=== PATIENT | male | born 1960 | race African-American/Black ===

== ENCOUNTER 2019-12-17 20:02 | Observation (INO) | payer OTHER, SELFPAY ==
--- NOTE | ~2019-12-17 | XR_ITS ---
EXAMINATION: XR chest 2V DATE: 12/18/2019 16:48 INDICATION: Chest pain. TECHNIQUE: Frontal and lateral views of the chest were obtained. COMPARISON: Chest 2 views 12/17/2019, CT abdomen and pelvis 11/01/2016 FINDINGS: The chest demonstrates clear lungs without pneumonia, pleural effusion, or pneumothorax. Th e heart size is normal. Median sternotomy wires are noted. Calcified mediastinal lymph nodes are cons istent with old granulomatous disease. IMPRESSION: 1. No acute cardiopulmonary disease. Reviewed, dictated and finalized at location A.
--- NOTE | ~2019-12-17 | XR_ITS ---
XR chest 1V portable DATE: 12/17/2019 21:20 INDICATION: Midsternal chest pain. Open heart surgery 5 months ago. Weakness. TECHNIQUE: Portable AP chest on 12/17/2019 at 2118 hours COMPARISON: None FINDINGS: Status post sternotomy and probable CABG. Coronary artery calcification and/or stent. Heart size appears borderline, not optimally evaluated on AP projection because of magnification. Increased density overlies the left lower lung zone, suggesting possible left lower lobe infiltrate a nd/atelectasis. The lungs otherwise appear clear. No pleural effusion or pulmonary vascular congestion or pneumothorax. IMPRESSION: Possible left lower lobe infiltrate and/atelectasis; consider PA and lateral chest regres sed for more optimal evaluation Reviewed, dictated and finalized at location A. IMPRESSION: Possible left lower lobe infiltrate and/atelectasis; consider PA an d lateral chest regressed for more optimal evaluation
[2019-12-17 20:11] VITALS: BP 142/94; PULSE 87; RESP 20; TEMP 36.9; O2SAT 97
--- NOTE | 2019-12-17 20:32 | ECG_ITS ---
Measurements Intervals Todd Rate: 86 P: 65 NJ: 159 QRS: -36 QRSD: 89 T: 109 QT: 390 QTc: 469 Interpretive Statements SINUS RHYTHM LEFT ATRIAL ENLARGEMENT LEFT AXIS DEVIATION CANNOT RULE OUT SEPTAL INFARCT, AGE INDETERMINATE MINIMAL ST ELEVATION IN ANT/INF LEADS ST-T WAVE ABNORMALITY IN HIGH LATERAL LEADS- CONSIDER ISCHEMIA BASELINE WANDER- I, II, V1-V2 ABNORMAL ECG Electronically Signed On 12-18-2019 6:53:35 CDT by Mega Larsen D.O.
--- NOTE | 2019-12-17 20:48 | ED.SOB ---
HPI - SOB/Dyspnea General Chief Complaint: Shortness of Breath/Dyspnea Stated Complaint: short of breath Time Seen by Provider: 12/17/19 20:13 Source: patient Mode of arrival: ambulatory Limitations: no limitations History of Present Illness HPI Narrative: This patient is a 59 year old male with multiple medical problems who presents for evaluation of shortness of breath that started yesterday. He noticed his sob with walking up the stairs but he states he has continue to be sob with exertion. He denies cough, chills, fever, edema, or sore throat. He reports midsternal chest pain that has been present since his CABG 5 months ago, and he states it is unchanged. HE denies history of asthma or COPD , but he states he wants to get checked because his mother has COPD. Related Data Home Medications Medication Instructions Recorded Confirmed alendronate-vitamin D3 1 tablet PO DAILY 12/17/19 12/18/19 aspirin 81 mg PO DAILY 12/17/19 12/18/19 cetirizine [24Hour Allergy] 10 mg PO PRN 12/17/19 12/18/19 ezetimibe 10 mg PO DAILY 12/17/19 12/18/19 furosemide 40 mg PO BID 12/17/19 12/18/19 gabapentin 600 mg PO TID 12/17/19 12/18/19 levetiracetam 1,000 mg PO BID 12/17/19 12/18/19 metoprolol succinate 25 mg PO DAILY 12/17/19 12/18/19 montelukast 10 mg PO HS 12/17/19 12/18/19 ascorbic acid (vitamin C) [Vitamin 1,000 mg PO DAILY 12/18/19 12/18/19 C] carvedilol 25 mg PO BID 12/18/19 12/18/19 cholecalciferol (vitamin D3) 125 mcg PO DAILY 12/18/19 12/18/19 [Vitamin D3] cinnamon bark [Cinnamon] 2,000 mg PO DAILY 12/18/19 12/18/19 cyanocobalamin (vitamin B-12) 5,000 mcg SUBLINGUAL DAILY 12/18/19 12/18/19 [Vitamin B-12] nitroglycerin 0.4 mg SUBLINGUAL Q5-15M PRN 12/18/19 12/18/19 potassium chloride 20 meq PO DAILY 12/18/19 12/18/19 saw palmetto fruit 450 mg PO DAILY 12/18/19 12/18/19 Allergies Allergy/AdvReac Type Severity Reaction Status Date / Time No Known Allergies Allergy Unverified 01/06/18 18:52 Review of Systems Review of Systems: All systems reviewed & are unremarkable except as noted in HPI and below Constitutional: Constitutional: Denies chills and Denies fever(s) ENT: Reports nasal congestion and Denies sore throat Cardiovascular: Cardiovascular: Reports chest pain (chronic from sternotomy and sternum fracture) Respiratory: Respiratory: Denies cough, Reports dyspnea and Reports wheezing Gastrointestinal: Gastrointestinal: Denies abdominal pain, Denies diarrhea, Denies nausea and Denies vomiting [facility] Past Medical History Medical History (Updated 12/18/19 @ 04:58 by Melvi Arias MD) Coronary artery disease CVA (cerebral vascular accident) with left upper extremity hemiparesis since 2000 Diabetes mellitus Diabetic neuropathy Essential hypertension Hyperlipidemia Surgical History Surgical History (Updated 12/18/19 @ 04:51 by Pina Wooten DO) Hx of heart artery stent 2017 and 2018 S/P CABG (coronary artery bypass graft) Family History Family History (Updated 12/18/19 @ 04:52 by Pina Wooten DO) Mother Hypertension Chronic obstructive pulmonary disease Congestive heart failure Father , at age 69 of suspected CVA Diabetes mellitus Hypertension Social History Social History (Updated 12/18/19 @ 04:53 by Pina Wooten DO) Social History: The patient lives alone. He is on disability from complications of his diabetes and chronic back pain as well as neuropathy. Smoking status: Never smoker Alcohol intake: never Substance use: never Spiritual care concerns: No Exam Const: General: no acute distress and alert Orientation/consciousness: patient oriented x3 HENMT: Head: normocephalic and atraumatic Face and sinus: face symmetric Mouth: Yes oropharynx normal Eyes: EOM: EOMs intact bilaterally Chest: Chest palpation & inspection: normal inspection of the chest and tenderness sternum Other: healed sternotomy scar incision Resp:
[2019-12-17 20:55] LABS: Alveolar/Arterial O2 Gradient 37.4 mmHg; Base Excess ABG -1.8 mEq/l (+/-2.0); Device ROOM AIR; Fractional Inspired Oxygen 21 %; HCO3 ABG 22.3 mEq/l (22.0-26.0); Modified Allen's Test Pass; Oxygen Content ABG 20.5 %vol (16.0-22.0); Oxygen Saturation ABG 94.1 % (95.0-100.0); PCO2 ABG 36.1 mmHg (35.0-45.0); PO2 ABG 69.1 mmHg (80.0-100.0); PO2 FiO2 Ratio Arterial Blood 3.29 %; Site Drawn LEFT RADIAL; Total Hemoglobin 15.7 g/dL (12.0-18.0); pH ABG 7.408 (7.350-7.450)
[2019-12-17 21:07] LABS: Basophils Absolute Auto 0.1 K/mm3 (0.0-0.1); Basophils Percent Auto 0.7 % (0.2-1.2); Eosinophils Absolute Auto 0.2 K/mm3 (0-0.3); Eosinophils Percent Auto 1.7 % (0-4.4); Hemoglobin 15.7 g/dL (14.0-18.0); Immature Granulocyte Absolute 0.06 K/mm3 (0.00-0.031); Immature Granulocyte Percent A 0.6 % (0-0.5); Lymphocytes Absolute Auto 3.51 K/mm3 (0.9-3.2); Lymphocytes Percent Auto 36.1 % (18.3-44.2); Mean Corpuscular HGB Conc 33.4 g/dl (32-36); Mean Corpuscular Hemoglobin 27.9 pg (26-34); Mean Corpuscular Volume 83.6 fl (80-100); Mean Platelet Volume 11.5 fl (7.4-10.4); Monocytes Absolute Auto 1.1 K/mm3 (0.1-0.6); Monocytes Percent Auto 11.7 % (2.6-8.5); Neutrophils Absolute Auto 4.8 K/mm3 (1.3-6.7); Neutrophils Percent Auto 49.2 % (45.5-73.1); Platelet Count Result 235 k/mm3 (150-375); Red Blood Count 5.62 M/mm3 (4.6-6.20); Red Cell Distribution Width 12.8 % (11.5-14.5); White Blood Count 9.7 K/mm3 (4.5-10.0)
[2019-12-17 21:18] LABS: Alanine Aminotransferase 22 U/L (4-50); Alkaline Phosphatase 88 U/L (38-126); Anion Gap 7 mmol/L (8-16); Aspartate Amino Transferase 28 U/L (17-59); Bilirubin,Total 0.6 mg/dL (0.2-1.3); Blood Urea Nitrogen 30 mg/dL (9-20); Calcium 9.1 mg/dL (8.4-10.2); Carbon Dioxide 27 mmol/L (22-30); Chloride 98 mmol/L (98-107); Estimated Glomerular Filt Rate > 60; Glucose 306 mg/dL (75-110); Potassium 4.6 mmol/L (3.4-5.0); Sodium 132 mmol/L (137-145)
[2019-12-17 21:27] LABS: Prothrombin Time 12.4 Seconds (11.1-14.7)
[2019-12-17 21:30] LABS: D Dimer 0.37 ug/mL (<0.48)
[2019-12-17 21:35] LABS: NT Pro B Type Natriuretic Pept 1130 PG/ML (5-100); Troponin I 0.348 ng/mL (0.000-0.034)
[2019-12-17 21:43] VITALS: BP 136/84; PULSE 80; RESP 20; O2SAT 95
[2019-12-17 21:54] LABS: Lactate Dehydrogenase 729 U/L (313-618)
[2019-12-17 23:16] VITALS: BP 124/79; PULSE 78; RESP 20; O2SAT 100
[2019-12-17 23:36] LABS: Glucose Point of Care 244 (65-105)
[2019-12-17] MEDS: ASPIRIN 81 MG CHEWABLE TABLET 324 MG PO (23:52)
[2019-12-18] VITALS (19 sets, daily range): BP systolic 118–147; BP diastolic 76–99; PULSE 65–83; RESP 14–20; TEMP 35.5–36.4; O2SAT 95–100; BMI 35.0
--- NOTE | 2019-12-18 00:12 | PC.NURSE ---
0007 Report received from [facility].
--- NOTE | 2019-12-18 01:46 | ADMIMU ---
This patient, Gonzalo Headley, was admitted to IMU status, and placed in Intensive Care Unit-5. Patient/family oriented to hospital policies and general routines including ID bracelet, bed and alarms, visiting hours, pain management, procedures, bathroom and other care routines, personal items, smoking policy, room service/diet, and visiting hours. Valuables list has been completed. Information on how to activate the Rapid Response Team has been discussed. Patient/Family are encouraged to report perceived risks to care and to ask questions if they do not understand what they are told or what they should do.
[2019-12-18 03:39] LABS: Basophils Absolute Auto 0.1 K/mm3 (0.0-0.1); Basophils Percent Auto 0.6 % (0.2-1.2); Eosinophils Absolute Auto 0.2 K/mm3 (0-0.3); Eosinophils Percent Auto 1.9 % (0-4.4); Hematocrit 45.1 % (42.0-52.0); Hemoglobin 15.1 g/dL (14.0-18.0); Immature Granulocyte Absolute 0.03 K/mm3 (0.00-0.031); Immature Granulocyte Percent A 0.3 % (0-0.5); Lymphocytes Percent Auto 42.8 % (18.3-44.2); Mean Corpuscular HGB Conc 33.5 g/dl (32-36); Mean Corpuscular Hemoglobin 27.7 pg (26-34); Mean Corpuscular Volume 82.6 fl (80-100); Mean Platelet Volume 11.4 fl (7.4-10.4); Monocytes Percent Auto 11.9 % (2.6-8.5); Neutrophils Absolute Auto 3.7 K/mm3 (1.3-6.7); Neutrophils Percent Auto 42.5 % (45.5-73.1); Platelet Count Result 231 k/mm3 (150-375); Red Blood Count 5.46 M/mm3 (4.6-6.20); Red Cell Distribution Width 12.7 % (11.5-14.5); White Blood Count 8.6 K/mm3 (4.5-10.0)
[2019-12-18 04:18] LABS: Troponin I 0.393 ng/mL (0.000-0.034)
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
[2019-12-18] MEDS: CHOLECALCIFEROL 1,000 UNITS TABLET 5000 UNITS PO (07:48)
[2019-12-18] MEDS: INSULIN GLARGINE (*BKC) 100 UNITS/ML 60 UNITS SUB-Q (07:48)
[2019-12-18] MEDS: GABAPENTIN 300 MG CAPSULE 600 MG PO ×3 (07:49→17:30)
[2019-12-18] MEDS: ASPIRIN 81 MG ENTERIC TABLET PO (07:49)
[2019-12-18] MEDS: CYANOCOBALAMIN 1,000 MCG TABLET 5000 MCG BY MOUTH (07:49)
[2019-12-18] MEDS: levETIRAcetam 500 MG TABLET 1000 MG PO ×2 (07:49→17:29)
[2019-12-18] MEDS: carvediloL 25 MG TABLET PO (07:49)
[2019-12-18] MEDS: POTASSIUM CHLORIDE 20 MEQ TABLET.ER PO (07:50)
[2019-12-18] MEDS: FUROSEMIDE 40 MG TABLET PO ×2 (07:50→17:30)
[2019-12-18] MEDS: METOPROLOL SUCCINATE EXT REL 25 MG TABCR PO (07:50)
[2019-12-18] MEDS: EZETIMIBE 10 MG TABLET PO (07:51)
[2019-12-18 08:20] LABS: Glucose Point of Care 165 (65-105)
[2019-12-18] MEDS: ENOXAPARIN 40 MG/0.4 ML SYRINGE SUB-Q (08:23)
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
[2019-12-18] MEDS: CLOPIDOGREL BISULFATE 75 MG TABLET PO (11:49)
[2019-12-18] MEDS: INSULIN ASPART (*BKC) 100 UNITS/ML SUB-Q (11:50)
[2019-12-18 11:55] LABS: Glucose Point of Care 281 (65-105)
[2019-12-18 13:52] LABS: SARS-CoV-2 RNA PCR Negative
--- NOTE | 2019-12-18 14:50 | PC.NURSE ---
Pt going to IMU. Report given to Johana MCNEILL. Patient arrived to 202 at 1445 via wheelchair. All belongings and medications sent with patient. Medications and chart given to sales secretary.
--- NOTE | 2019-12-18 15:06 | PC.NURSE ---
This patient, Gonzalo Headley, was received from [ ICU] on 12/18/19 at 14:43. Personal belongings list checked and signed. Patient/family oriented to unit policies and routines. Received patient on Room air by wheel chair. Patient vital signs stable. A&Ox4. With belongings
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
[2019-12-18 17:13] LABS: Glucose Point of Care 188 (65-105)
[2019-12-18] MEDS: MONTELUKAST SODIUM 10 MG TABLET PO (20:21)
[2019-12-18 20:39] LABS: Glucose Point of Care 264 (65-105)
[2019-12-19] VITALS (9 sets, daily range): BP systolic 134–146; BP diastolic 85–98; PULSE 64–85; RESP 16–20; TEMP 35.7–36.6; O2SAT 96–100
--- NOTE | 2019-12-19 | ECHO_ITS ---
Patient Info Name: Gonzalo Headley Age: 59 years : 1960 Gender: Male Ht: 67 in Wt: 223 lbs BSA: 2.23 m2 HR: 69 bpm BP: 134 / 85 mmHg Technical Quality: Fair Exam Date: 12/19/2019 6:57 AM Exam Location: [facility] Pulmonary Patient Status: Outpatient Admit Date: 12/17/2019 Staff Ordering Physician: Pedro Luis Hernández MD Ski Edge Painter: Diana Chiang RDCS Attending Provider: Rai Saab MD Referring Physician: Edgar ODEN; Exam Type: CA echo dop color flow w con Study Info Complete two-dimensional, color flow and Doppler transthoracic echocardiogram is performed with contrast to opacify the left ventricle and to improve the deliniation of the left ventricle endocardial borders. Contrast/Agitated Saline Contrast/Ag. Saline: Definity Amount: 3.00 ml Summary 1. Left ventricular systolic function is mildly reduced, estimated at \R\40%. 2. The mitral valve has thickened leaflets. 3. There is mild mitral valve regurgitation. 4. There is no aortic valve stenosis. 5. Left atrial chamber dimension is mildly enlarged. Left Ventricle Left ventricular chamber dimension is normal. Left ventricular systolic function is mildly reduced, estimated at \R\40%. There is mildly increased left ventricular wall thickness. Left ventricular septal wall motion is normal. The left ventricular diastolic function is grade I diastolic dysfunction. Right Ventricle Right ventricular chamber dimension is normal. Right ventricular systolic function is normal. Left Atria Left atrial chamber dimension is mildly enlarged. Right Atria Right atrial chamber dimension is normal. Aortic Valve The aortic valve is trileaflet. There is no aortic valve sclerosis. There is no aortic valve stenosis. There is no aortic valve regurgitation. Pulmonic Valve The pulmonic valve is normal. There is no pulmonic valve stenosis. There is no pulmonic regurgitation. Mitral Valve The mitral valve has thickened leaflets. There is no mitral valve stenosis. There is mild mitral valve regurgitation. Tricuspid Valve The tricuspid valve leaflets are normal. There is no significant tricuspid valve stenosis. There is no tricuspid valve regurgitation. pulmonary Pressure difficult to assess due to poor TR envelope. Pericardium/Pleural The pericardium appears normal. There is no pericardial effusion. Inferior Vena Cava Normal inferior vena cava with >50% collapse upon inspiration. Aorta The aortic root size at the sinus of Valsalva is normal. The prox ascending aorta size is normal. Left Ventricular Outflow Tract Name Value Normal LVOT 2D LVOT Diameter 2.29 cm LVOT Doppler LVOT Peak Gradient 2 mmHg LVOT Mean Gradient 1 mmHg LVOT VTI 13.04 cm LVOT VTI/AV VTI Ratio 0.71 LVOT Stroke Volume 53.84 ml LVOT CO 2.53 l/min LVOT CI 1.13 L/min/m2 Pulmonic Valv
[2019-12-19 04:45] LABS: Potassium 4.1 mmol/L (3.4-5.0)
[2019-12-19 04:48] LABS: Anion Gap 5 mmol/L (8-16); Blood Urea Nitrogen 29 mg/dL (9-20); Calcium 9.1 mg/dL (8.4-10.2); Carbon Dioxide 29 mmol/L (22-30); Chloride 101 mmol/L (98-107); Estimated CRCL calculation 68 ml/min; Estimated Glomerular Filt Rate > 60; Glucose 234 mg/dL (75-110); Magnesium 1.8 mg/dL (1.6-2.3); Sodium 135 mmol/L (137-145)
[2019-12-19 07:51] LABS: Hemoglobin A1C 10.2 % (<5.7)
[2019-12-19] MEDS: CANAGLIFLOZIN 100 MG TABLET PO (08:25)
[2019-12-19 08:36] LABS: Glucose Point of Care 212 (65-105)
[2019-12-19] MEDS: ASPIRIN 81 MG ENTERIC TABLET PO (08:54)
[2019-12-19] MEDS: POTASSIUM CHLORIDE 20 MEQ TABLET.ER PO (08:54)
[2019-12-19] MEDS: CYANOCOBALAMIN 1,000 MCG TABLET 5000 MCG BY MOUTH (08:54)
[2019-12-19] MEDS: CHOLECALCIFEROL 1,000 UNITS TABLET 5000 UNITS PO (08:54)
[2019-12-19] MEDS: levETIRAcetam 500 MG TABLET 1000 MG PO (08:55)
[2019-12-19] MEDS: ENOXAPARIN 40 MG/0.4 ML SYRINGE SUB-Q (08:55)
[2019-12-19] MEDS: GABAPENTIN 300 MG CAPSULE 600 MG PO ×2 (08:55→12:31)
[2019-12-19] MEDS: CLOPIDOGREL BISULFATE 75 MG TABLET PO (08:55)
[2019-12-19] MEDS: METOPROLOL SUCCINATE EXT REL 25 MG TABCR PO (08:55)
[2019-12-19] MEDS: EZETIMIBE 10 MG TABLET PO (08:55)
[2019-12-19] MEDS: FUROSEMIDE 40 MG TABLET PO (08:56)
[2019-12-19] MEDS: INSULIN GLARGINE (*BKC) 100 UNITS/ML 60 UNITS SUB-Q (08:56)
[2019-12-19] MEDS: INSULIN ASPART (*BKC) 100 UNITS/ML SUB-Q (08:56)
--- NOTE | 2019-12-19 12:55 | PM.PNCARD ---
Progress Note: A&P Assessment and Plan (1) Person under investigation for COVID-19: Code(s): Z20.828 - Contact with and (suspected) exposure to other viral communicable diseases Status: Acute Assessment and Plan: serology pending (2) Elevated troponin: Code(s): R79.89 - Other specified abnormal findings of blood chemistry Status: Acute Assessment and Plan: Pt COVID PUI with elevated troponin in setting of pneumonia and CRI Flat pattern No acute EKG changes he seems to be stable from cardiac standpoint to be discharged home, please have him follow-up with me in 1 week (3) Diabetes mellitus with hyperglycemia: Qualifiers: Diabetes mellitus type: type 2 Diabetes mellitus moth exterminator insulin use: with fdc use Qualified Code(s): E11.65 - Type 2 diabetes mellitus with hyperglycemia; Z79.4 - residential (current) use of insulin Code(s): E11.65 - Type 2 diabetes mellitus with hyperglycemia Status: Acute Assessment and Plan: glucose > 300 management per PC (4) Pneumonia: Code(s): J18.9 - Pneumonia, unspecified organism Status: Acute Assessment and Plan: management per permanent mold supervisor (5) Hypothermia: Code(s): T68.XXXA - Hypothermia, initial encounter Status: Acute (6) Monocytosis: Code(s): D72.821 - Monocytosis (symptomatic) Status: Acute (7) Oxygen desaturation: Code(s): R09.02 - Hypoxemia Status: Acute Subjective Date/time seen: 12/19/19 12:55 he feels okay today, no more chest pain, no significant shortness breath no leg swelling, he wants to go home Exam Const: General: No no acute distress Resp: Effort & Inspection: normal respiratory effort GI: Inspection: non-distended Skin: General skin exam: normal color Extrem: General: normal to inspection, no edema and pedal edema (trace LE edema) Objective Data Vital Signs Vital Signs: Vital Signs - 24 hr 12/18/19 13:52 12/18/19 16:00 12/18/19 18:00 Temperature 36.4 C Pulse Rate 76 77 79 Respiratory Rate 18 Blood Pressure 147/99 H Pulse Oximetry 100 12/18/19 19:59 12/18/19 20:00 12/18/19 21:39 Temperature 36.1 C L Pulse Rate 75 75 83 Respiratory Rate 16 16 Blood Pressure 134/84 Pulse Oximetry 100 100 12/19/19 00:00 12/19/19 02:00 12/19/19 04:00 Temperature 36.6 C 36.5 C Pulse Rate 71 74 77 Respiratory Rate 18 20 Blood Pressure 141/93 H 134/85 Pulse Oximetry 96 100 12/19/19 05:39 12/19/19 08:00 12/19/19 08:16 Temperature 36.4 C Pulse Rate 64 73 75 Respiratory Rate 16 Blood Pressure 144/98 H Pulse Oximetry 98 12/19/19 08:55 12/19/19 10:15 12/19/19 12:00 Temperature 35.7 C L Pulse Rate 75 76 84 Respiratory Rate 16 Blood Pressure 146/97 H Pulse Oximetry 100 Intake/Output Intake/Output: Intake & Output 12/16/19 12/17/19 12/18/19 12/19/19 23:59 23:59 23:59 23:59 Intake Total 2220 420 Output Total 800 480 Balance 1420 -60 Meds/Results Medications: Active Medications Generic Name Dose Route Start Last Admin Trade Name Freq PRN Reason Stop Dose Admin Hydrocodone Bitart/Acetaminophen 1 tab 12/18/19 08:01 12/19/19 04:12 [place] 10-325 Mg PO 1 tab Q6H PRN Administration Pain Rated 7-10 Aspirin 81 mg 12/18/19 09:00 12/19/19 08:54 Aspirin Ec PO 81 mg DAILY TRAN Administration Canagliflozin 100 mg 12/19/19 08:00 12/19/19 08:25 Invokana PO 100 mg DAILY@0800 TRAN Administration Clopidogrel Bisulfate 75 mg 12/18/19 09:00 12/19/19 08:55 Plavix PO 75 mg QAM TRAN Administration Cyanocobalamin 5,000 mcg 12/18/19 09:00 12/19/19 08:54 Vitamin B-12 Tab BY MOUTH 5,000 mcg DAILY TRAN Administration Dextrose 12.5 gm 12/18/19 06:19 Dextrose 50% Syringe IV PUSH PRN PRN Hypoglycemia Protocol Ezetimibe 10 mg 12/18/19 09:00 12/19/19 08:55 Zetia PO 10 mg DAILY TRAN Administrat
[2019-12-19 12:59] LABS: Glucose Point of Care 182 (65-105)
--- NOTE | 2019-12-19 13:07 | PM.DS ---
DS: Admitting Diagnosis Admitting Diagnosis Admitting Diagnosis: Dyspnea, Elevated troponin DS: Discharge Diagnosis Discharge Diagnosis (1) Person under investigation for COVID-19: Code(s): Z20.828 - Contact with and (suspected) exposure to other viral communicable diseases Status: Acute Assessment and Plan: COVID-19 testing was negative. CXR on admisison showing possible LLL airspace disease but CXR clear on repeat as a 2 view. (2) Chest pain: Qualifiers: Chest pain type: other chest pain Qualified Code(s): R07.89 - Other chest pain Code(s): R07.9 - Chest pain, unspecified Status: Acute Assessment and Plan: Patient with throbbing but fleeting chest pain as well as DANG. Patient no longer SOB. No further chest pain. BNP was 1130 but CXR not consistent with pulmonary edema and clinically appears euvolemic. We continued home Lasix. Echo pending. [employer] following. (3) Dyspnea on exertion: Code(s): R06.00 - Dyspnea, unspecified Status: Acute Assessment and Plan: As above. (4) Coronary artery disease: Code(s): I25.10 - Atherosclerotic heart disease of [place] coronary artery without angina pectoris Status: Acute Assessment and Plan: CAD s/p recent CABG. As above. (5) Elevated troponin: Code(s): R79.89 - Other specified abnormal findings of blood chemistry Status: Acute Assessment and Plan: Troponin elevated but flat at 0.39. Cardiology following. We continued home cardiac medications of aspirin, beta-erick and Lasix. He has listed both Coreg and metoprolol. RN has an updated med listed and patient takes Metoprolol ER 25mg daily so we stopped Coreg. (6) Diabetes mellitus with hyperglycemia: Qualifiers: Diabetes mellitus type: type 2 Diabetes mellitus truck terminal manager insulin use: with custodial use Qualified Code(s): E11.65 - Type 2 diabetes mellitus with hyperglycemia; Z79.4 - meterman (current) use of insulin Code(s): E11.65 - Type 2 diabetes mellitus with hyperglycemia Status: Acute Assessment and Plan: A1c 10.2. The patient's blood glucose was monitored Glucose elevated at times Monitored with AccuCheks covering with sliding scale. Hypoglycemia protocol was available as needed. We continued current medications with Lantus; Continued diabetic consistent carbohydrate diet. (7) Essential hypertension: Code(s): I10 - Essential (primary) hypertension Status: Acute Assessment and Plan: Patient's blood pressure was monitored Blood pressure remained reasonably well controlled. We continued current medications. DS: Summary Hospital Course Reason for hospitalization: 59yo male with hx of CAD here for CP. Please see H&P for details Hospital Course: As above Time Spent with Patient Time attestation: Total time spent providing and/or coordinating discharge services:35 minutes Time spent: Greater than 30 minutes Specific discharge activities: Discussed with Cardiology Exam Narrative: Exam Narrative: AF 146/97 85 16 100% ra Gen - NARD Chest - CTA bilaterally, nml RR. well healed vertical midline scar CV - RRR S1/S2. telemetry showing no significant dysrhythmias Abd - Soft, NT/ND, Positive BS Ext - No pedal edema Psych - Nml mood and affect; in good spirits. Skin - Warm and dry DS: Data Data Completed and Pending Labs on day of discharge: Labs from last 24 hours 12/19/19 12/19/19 12/19/19 12:33 08:18 04:02 Sodium Potassium Chloride Carbon Dioxide Anion Gap BUN Creatinine Estim Creat Clear Calc Estimated GFR Glucose POC Capillary Glucose 182 H 212 H Hemoglobin A1c 10.2 H Calcium Magnesium SARS-CoV-2 RNA (RT-PCR) 12/19/19 12/18/19 12/18/19 04:02 20:35 17:09 Sodium 135 L Potassium 4.1 Chloride 101 Carbon Dioxide 29 Anion Gap 5 L
--- NOTE | 2019-12-24 14:39 | PC.NURSE ---
ECHO report shown to Dr. Saab.
--- NOTE | 2019-12-29 09:31 | PC.NURSE ---
Echo results faxed to Dr. Juan Santoyo.
== END 2019-12-19 13:31 | disposition home or self-care (01) ==
LOC: ANHED 23:14 → ANHICU 23:25 → ANHIMU 12-18 14:43
PROVIDERS: Admitting Provider Internal Medicine; Emergency Provider General Practice; PCP Family Medicine; Visit Provider Internal Medicine
DX: Z20.828 Contact with and (suspected) exposure to other viral communicable diseases (principal); R07.9 Chest pain, unspecified; R06.00 Dyspnea, unspecified; R79.89 Other specified abnormal findings of blood chemistry; E11.65 Type 2 diabetes mellitus with hyperglycemia; D72.821 Monocytosis (symptomatic); T68.XXXA Hypothermia, initial encounter; R09.02 Hypoxemia; I25.10 Atherosclerotic heart disease of native coronary artery without angina pectoris; E11.40 Type 2 diabetes mellitus with diabetic neuropathy, unspecified; I10 Essential (primary) hypertension; I69.354 Hemiplegia and hemiparesis following cerebral infarction affecting left non-dominant side; E78.5 Hyperlipidemia, unspecified; Z95.5 Presence of coronary angioplasty implant and graft; Z95.1 Presence of aortocoronary bypass graft; Z79.82 Long term (current) use of aspirin
CPT/HCPCS: 36415; 36600; 71045; 71046; 80048; 80053; 82805; 83036; 83615; 83735; 83880; 84484; 85025; 85380; 85610; 85730; 87635; 93005; 96372; 99285; A9270; C8929; C9803; G0378; G0379; J1650; J1815; Q9957; U0003

== ENCOUNTER 2023-03-02 23:24 | Inpatient (IN) | payer OTHER, SELFPAY ==
--- NOTE | ~2023-03-02 | CT_ITS ---
EXAMINATION: CTA chest PE protocol DATE: 03/03/2023 02:52 INDICATION: Dyspnea. TECHNIQUE: Computed tomography angiography (CTA) of the chest was performed with 100 mL Omnipaque-350 intravenous contrast timed to evaluate the pulmonary arteries. Coronal maximum intensity projection 3D-reconstructions were created by the technologist. Automated exposure control and iterative reconst ruction technique were employed. The dose-length product was 638.28 mGy-cm. COMPARISON: CT abdomen and pelvis 11/01/16 FINDINGS: There is smooth septal thickening, consistent mild pulmonary edema. There are small pleural effusions. There is mild dependent atelectasis bilaterally. A calcified left lung nodule and calcifi ed left hilar and mediastinal lymph nodes are consistent with old granulomatous disease. There is mil d mediastinal lymphadenopathy, likely reactive. Cardiomegaly is noted. There are changes of coronary artery bypass grafting. No pericardial effusion. The central pulmonary arteries are enlarged, consist ent with pulmonary arterial hypertension. There is no pulmonary embolus. There is bilateral gynecomas tia. Calcifications in the liver and spleen are consistent with old granulomatous disease. There is s evere thoracic spondylosis. IMPRESSION: 1. No pulmonary embolus. Sensitivity is mildly decreased by motion artifact. 2. Mild pulmonary edema. 3. Small pleural effusions. 4. Mild mediastinal lymphadenopathy, likely reactive. Reviewed, dictated and finalized at location E. RETAILER
--- NOTE | ~2023-03-02 | XR_ITS ---
EXAMINATION: XR chest 2V DATE: 03/03/2023 01:37 INDICATION: Chest pain. TECHNIQUE: Frontal and lateral views of the chest were obtained. COMPARISON: Chest 2 views 01/17/2020, chest CT 03/03/2023 FINDINGS: There are small pleural effusions. There is mild atelectasis at the lung bases. There is a diffuse interstitial pattern, consistent with mild pulmonary edema. No pneumothorax. Cardiomegaly is noted. Median sternotomy wires and mediastinal surgical clips are seen, likely from prior coronary ar joanna bypass grafting. IMPRESSION: 1. Mild pulmonary edema. 2. Small pleural effusions. 3. Cardiomegaly. Reviewed, dictated and finalized at location E. CULTURE TEACHER
--- NOTE | 2023-03-02 23:26 | ECG_ITS ---
Measurements Intervals [place] Rate: 80 P: 51 LA: 165 QRS: -73 QRSD: 91 T: 105 QT: 383 QTc: 443 Interpretive Statements SINUS RHYTHM LEFT AXIS DEVIATION INCOMPLETE LEFT BUNDLE BRANCH BLOCK POOR R WAVE PROGRESSION, CONSIDER ANTERIOR INFARCT BORDERLINE ST-T WAVE ABNORMALITY0 DIFFUSE LEADS ABNORMAL ECG COMPARED TO ECG 12/17/2019 20:16:34 INCOMPLETE LEFT BUNDLE BRANCH BLOCK NOW PRESENT Electronically Signed On 03-03-2023 6:56:05 ASSOCIATE PROFESSOR OF LITERATURE by Mega Larsen D.O.
[2023-03-02 23:28] VITALS: BP 156/97; PULSE 81; RESP 20; TEMP 36.3; O2SAT 100
[2023-03-03] VITALS (18 sets, daily range): BP systolic 108–164; BP diastolic 62–102; PULSE 60–88; RESP 14–23; TEMP 36.5; O2SAT 94–100
--- NOTE | 2023-03-03 00:57 | ED.SOB ---
HPI - SOB/Dyspnea General Chief Complaint: Shortness of Breath/Dyspnea Stated Complaint: SOB Time Seen by Provider: 03/03/23 00:24 Source: patient Limitations: no limitations History of Present Illness HPI Narrative: Patient is a 63-year-old male presents to the emergency department complaining of shortness of breath. Patient states he has been having shortness of breath for the past 2 weeks has not gotten better, worse when he lays flat. Patient states he was just admitted to another facility and was discharged a couple days ago and told them that he was not worried go home as he still isn't feeling well but was sent home regardless and was still feeling short of breath. Patient admits to history of CABG and assisting a heart doctor through [facility]. Patient states that he takes Lasix twice a day and has any recent changes to his medications and has overall been taking this as prescribed. Patient denies history of blood clots or use of blood thinners. Patient is to bilateral lower extremity swelling has been present over similar duration is the shortness of breath and is also chronic and seems to go up and down but has not been getting better either. Patient admits to urinating without difficulty. Patient denies melena, hematochezia, abdominal pain, nausea, vomiting, sore throat, nasal congestion, new numbness, new weakness, recent injuries, fever. Patient admits to chronic chest pain that is unchanged. Patient denies use home oxygen. Patient states he lives at home with his mother who is his caregiver. Related Data Home Medications Medication Instructions Recorded Confirmed alendronate 70 mg-cholecalciferol 1 tablet PO DAILY 12/17/19 12/18/19 (vitamin D3) 5,600 unit tablet aspirin 81 mg tablet,delayed 81 mg PO DAILY 12/17/19 12/18/19 release cetirizine 10 mg tablet (24Hour 10 mg PO PRN 12/17/19 12/18/19 Allergy) ezetimibe 10 mg tablet 10 mg PO DAILY 12/17/19 12/18/19 furosemide 40 mg tablet 40 mg PO BID 12/17/19 12/18/19 gabapentin 300 mg capsule 600 mg PO TID 12/17/19 12/18/19 levetiracetam 1,000 mg tablet 1,000 mg PO BID 12/17/19 12/18/19 metoprolol succinate 25 mg 25 mg PO DAILY 12/17/19 12/18/19 tablet,extended release 24 hr montelukast 10 mg tablet 10 mg PO HS 12/17/19 12/18/19 ascorbic acid (vitamin C) 500 mg 1,000 mg PO DAILY 12/18/19 12/18/19 tablet (Vitamin C) cholecalciferol (vitamin D3) 125 125 mcg PO DAILY 12/18/19 12/18/19 mcg (5,000 unit) tablet (Vitamin D3) cinnamon bark 500 mg capsule 2,000 mg PO DAILY 12/18/19 12/18/19 (Cinnamon) cyanocobalamin (vitamin B-12) 5,000 mcg sublingual DAILY 12/18/19 12/18/19 5,000 mcg sublingual tablet (Vitamin B-12) hydrocodone 10 mg-acetaminophen 1 tablet PO TID PRN Pain 12/18/19 12/18/19 325 mg tablet nitroglycerin 0.4 mg sublingual 0.4 mg sublingual Q5-15M PRN Chest 12/18/19 12/18/19 tablet Pain potassium chloride 20 mEq 20 meq PO DAILY 12/18/19 12/18/19 tablet,extended release saw palmetto 450 mg capsule 450 mg PO DAILY 12/18/19 12/18/19 Allergies Allergy/AdvReac Type Severity Reaction Status Date / Time No Known Allergies Allergy Unverified 01/06/18 18:52 Review of Systems Review of Systems: A 10 system review of systems was completed on the patient and is negative except for what is stated in the HPI. Nursing and ancillary documentation was reviewed. [facility] Past Medical History Medical History (Updated 03/03/23 @ 06:21 by Armando Pelletier DO) Coronary artery disease CVA (cerebral vascular accident) with left upper extremity hemiparesis since 2000 Diabetes mellitus Diabetic neuropathy Essential hypertension Hyperlipidemia Seizure disorder since CVA last year Surgical History Surgical History (Updated 12/18/19 @ 04:51 by Pina Wooten DO) Hx of heart artery stent 2017 and 2018 S/P CABG (coronary artery bypass graft) Family History Family History (Reviewed 12/18/19 @ 08:30 by Judit Escobar,
[2023-03-03 01:26] LABS: Basophils Percent Auto 0.4 % (0.2-1.2); Eosinophils Absolute Auto 0.5 K/mm3 (0-0.3); Eosinophils Percent Auto 6.2 % (0-4.4); Hematocrit 43.7 % (42.0-52.0); Hemoglobin 13.5 g/dL (14.0-18.0); Immature Granulocyte Absolute 0.03 K/mm3 (0.00-0.031); Immature Granulocyte Percent A 0.4 % (0-0.5); Lymphocytes Absolute Auto 1.83 K/mm3 (0.9-3.2); Lymphocytes Percent Auto 23.2 % (18.3-44.2); Mean Corpuscular HGB Conc 30.9 g/dl (32-36); Mean Corpuscular Hemoglobin 27.4 pg (26-34); Mean Corpuscular Volume 88.8 fl (80-100); Mean Platelet Volume 11.7 fl (7.4-10.4); Monocytes Absolute Auto 1.2 K/mm3 (0.1-0.6); Monocytes Percent Auto 15.1 % (2.6-8.5); Neutrophils Absolute Auto 4.3 K/mm3 (1.3-6.7); Neutrophils Percent Auto 54.7 % (45.5-73.1); Nucleated Red Blood Cells Perc 0.3 % (0.0-0.2); Platelet Count Result 210 k/mm3 (150-375); Red Blood Count 4.92 M/mm3 (4.6-6.20); Red Cell Distribution Width 15.5 % (11.5-14.5); White Blood Count 7.9 K/mm3 (4.5-10.0)
[2023-03-03 01:32] LABS: Alanine Aminotransferase 36 U/L (6-50); Albumin Level 3.9 g/dL (3.5-5.1); Alkaline Phosphatase 97 U/L (38-126); Anion Gap 8 mmol/L (8-16); Aspartate Amino Transferase 35 U/L (17-59); Bilirubin,Total 1.3 mg/dL (0.2-1.3); Blood Urea Nitrogen 25 mg/dL (9-20); Calcium 8.7 mg/dL (8.4-10.2); Carbon Dioxide 29 mmol/L (22-30); Chloride 102 mmol/L (98-107); Estimated CRCL calculation 42 ml/min; Estimated Glomerular Filt Rate 53; Glucose 267 mg/dL (65-110); INR 1.1; Lipase 31 U/L (23-300); Magnesium 2.5 mg/dL (1.6-2.3); Potassium 4.5 mmol/L (3.4-5.0); Prothrombin Time 14.9 Seconds (11.1-14.7); Sodium 139 mmol/L (137-145)
[2023-03-03 01:33] LABS: Partial Thromboplastin Time 36.6 SECONDS (22.3-36.8)
[2023-03-03] MEDS: FUROSEMIDE INJ 40 MG/4 ML VIAL IV PUSH (01:41)
[2023-03-03 01:57] LABS: Influenza A QL RT-PCR Negative (Negative); Influenza B QL RT-PCR Negative (Negative); SARS-CoV-2 RNA PCR Negative (Negative)
[2023-03-03 02:02] LABS: NT Pro B Type Natriuretic Pept 14100 pg/mL (19.9-100)
[2023-03-03 04:45] LABS: Troponin I 0.061 ng/mL (0.000-0.034)
[2023-03-03 07:21] LABS: Troponin I 0.066 ng/mL (0.000-0.034)
[2023-03-03] MEDS: ISOSORBIDE MONONITRATE 30 MG TAB.ER.24H PO (11:58)
[2023-03-03] MEDS: CLOPIDOGREL BISULFATE 75 MG TABLET PO (11:59)
[2023-03-03] MEDS: SACUBITRIL/VALSARTAN 49-51 MG TABLET 1 TABLET PO ×2 (11:59→20:52)
[2023-03-03] MEDS: FUROSEMIDE 40 MG TABLET PO ×2 (11:59→17:49)
[2023-03-03] MEDS: METOPROLOL SUCCINATE EXT REL 25 MG TABCR PO (11:59)
--- NOTE | 2023-03-03 12:39 | PM.IMHP ---
H&P: HPI History of Present Illness Date/Time: 03/03/23 12:39 Chief Complaint: sob Narrative: 63-year-old female with history of heart disease, CVA, diabetes, hypertension, seizure disorder is presenting with shortness of breath. He states that has gotten progressively worse of the last couple weeks and is worse when he lays flat. He was just admitted to a different facility and discharged home even though he says he was not feeling well and was still short of breath. He does have a history of a CABG done at [facility] and takes Lasix twice a day. He denies missing any medications recently. He states his lower extremity edema is present in at baseline. No chest pain. No nausea, vomiting or diarrhea. No fevers or chills. Review of Systems Review of Systems: 12 point review of systems was assessed and was negative except as noted in the HPI [facility] Past Medical History Medical History Coronary artery disease CVA (cerebral vascular accident) with left upper extremity hemiparesis since 2000 Diabetes mellitus Diabetic neuropathy Essential hypertension Hyperlipidemia Seizure disorder since CVA last year Surgical History Surgical History Hx of heart artery stent 2017 and 2018 S/P CABG (coronary artery bypass graft) Family History Family History Mother Hypertension Chronic obstructive pulmonary disease Congestive heart failure Father , at age 69 of suspected CVA Diabetes mellitus Hypertension Social History Social History Social History: The patient lives alone. He is on disability from complications of his diabetes and chronic back pain as well as neuropathy. Smoking status: Never smoker Alcohol intake: never Substance use: never Substance use type: does not use Lack of Transportation: No Lack of Food: Never True Current Housing: I Have Housing Concerned About Future Housing: No Difficulty Paying Gas/Electric Bills: No Difficulty Paying for Meds: No Currently Unemployed: No Education: Associate Degree Difficulty w/ Childcare or Family Care: No Spiritual care concerns: No Meds Home Medications and Allergies Home Medications Medication Instructions Recorded Confirmed Type alendronate 70 mg-cholecalciferol 1 tablet PO DAILY 12/17/19 12/18/19 History (vitamin D3) 5,600 unit tablet aspirin 81 mg tablet,delayed 81 mg PO DAILY 12/17/19 12/18/19 History release cetirizine 10 mg tablet (24Hour 10 mg PO PRN 12/17/19 12/18/19 History Allergy) ezetimibe 10 mg tablet 10 mg PO DAILY 12/17/19 12/18/19 History gabapentin 300 mg capsule 600 mg PO TID 12/17/19 12/18/19 History levetiracetam 1,000 mg tablet 1,000 mg PO BID 12/17/19 12/18/19 History metoprolol succinate 25 mg 25 mg PO DAILY 12/17/19 12/18/19 History tablet,extended release 24 hr montelukast 10 mg tablet 10 mg PO HS 12/17/19 12/18/19 History ascorbic acid (vitamin C) 500 mg 1,000 mg PO DAILY 12/18/19 12/18/19 History tablet (Vitamin C) cholecalciferol (vitamin D3) 125 125 mcg PO DAILY 12/18/19 12/18/19 History mcg (5,000 unit) tablet (Vitamin D3) cinnamon bark 500 mg capsule 2,000 mg PO DAILY 12/18/19 12/18/19 History (Cinnamon) cyanocobalamin (vitamin B-12) 5,000 mcg sublingual DAILY 12/18/19 12/18/19 History 5,000 mcg sublingual tablet (Vitamin B-12) nitroglycerin 0.4 mg sublingual 0.4 mg sublingual Q5-15M PRN Chest 12/18/19 12/18/19 History tablet Pain potassium chloride 20 mEq 20 meq PO DAILY 12/18/19 12/18/19 History tablet,extended release saw palmetto 450 mg capsule 450 mg PO DAILY 12/18/19 12/18/19 History clopidogrel 75 mg tablet 75 mg PO QAM #30 tabs 12/19/19 Rx insulin glargine 100 unit/mL 70 unit (0.7 mL) subcut DAILY #10
--- NOTE | 2023-03-03 14:58 | PC.NURSE ---
This patient, Gonzalo Headley, was admitted to Medical Room 347-01. Patient/family oriented to hospital policies and general routines including ID bracelet, bed and alarms, visiting hours, pain management, procedures, bathroom and other care routines, personal items, smoking policy, room service/diet, and visiting hours. Information on how to activate the Rapid Response Team has been discussed. Patient/Family are encouraged to report perceived risks to care and to ask questions if they do not understand what they are told or what they should do.
--- NOTE | 2023-03-03 16:07 | PC.NURSE ---
Addendum entered by Alejandro Eason RN 03/03/23 16:17: RN did not update medication list as ER nurse and hospitalist already confirmed medications. Original Note: Patient does not have a medication list or know what he takes. Patient also stated that his mother does not know what medications he takes. RN is using external medication history to update medication list.
[2023-03-03] MEDS: INSULIN ASPART (*BKC) 100 UNITS/ML SUB-Q (17:49)
[2023-03-03 18:43] LABS: Glucose Point of Care 220 mg/dl (65-105)
[2023-03-03 21:11] LABS: Hemoglobin A1C 10.6 % (<5.7)
[2023-03-03] MEDS: traZODone HCL 50 MG TABLET 100 MG PO (21:39)
[2023-03-03] MEDS: GABAPENTIN 300 MG CAPSULE 600 MG PO (21:39)
[2023-03-04] VITALS (11 sets, daily range): BP systolic 123–155; BP diastolic 71–89; PULSE 63–85; RESP 18–21; TEMP 36.6–37.4; O2SAT 93–100
--- NOTE | 2023-03-04 | ECHO_ITS ---
Patient Info Name: Gonzalo Headley Age: 63 years : 1960 Gender: Male Ht: 68 in Wt: 190 lbs BSA: 2.05 m2 HR: 68 bpm BP: 164 / 97 mmHg Heart Rhythm: Sinus Rhythm Technical Quality: Fair Exam Date: 03/04/2023 9:43 AM Exam Location: Echo Lab Exam Room: 348 Patient Status: Inpatient Admit Date: 03/04/2023 Staff Ordering Physician: Roz Acosta DO Site Promotion Agent: Evie Olivares RDCS Attending Provider: Lluvia Das MD Referring Physician: Karla ERNANDEZ; Exam Type: CA echo doppler color flow Study Info Indications - short of breath Complete two-dimensional, color flow and Doppler transthoracic echocardiogram is performed. Summary 1. Complete two-dimensional, color flow and Doppler transthoracic echocardiogram is performed. 2. Normal left ventricular size, overall preserved systolic function, inferior hypokinesia noted. 3. Mild left atrial enlarged. 4. Trivial mitral regurgitation. Left Ventricle Left ventricular chamber dimension is normal. Left ventricular systolic function is normal, estimated at Empty. The left ventricular diastolic function is grade I diastolic dysfunction. Right Ventricle Right ventricular chamber dimension is normal. Left Atria Left atrial chamber dimension is mildly enlarged. Right Atria Right atrial chamber dimension is normal. Aortic Valve The aortic valve is normal. Pulmonic Valve The pulmonic valve is not well visualized. There is trace pulmonic regurgitation. Mitral Valve The mitral valve has normal leaflets. Tricuspid Valve The tricuspid valve leaflets are normal. Pericardium/Pleural The pericardium appears normal. Aorta The aortic root size at the sinus of Valsalva is normal. Left Ventricular Outflow Tract Name Value Normal LVOT 2D LVOT Diameter 2.1 cm LVOT Doppler LVOT Peak Gradient 5 mmHg LVOT Mean Gradient 3 mmHg LVOT VTI 21 cm LVOT VTI/AV VTI Ratio 0.8 LVOT Stroke Volume 71 ml LVOT CO 15.8 l/min LVOT CI 7.7 l/min/m2 Pulmonic Valve Name Value Normal PV Doppler PV Peak Gradient 4 mmHg Mitral Valve Name Value Normal MV Doppler MV Decel [place] 507 cm/s2 MV PHT 75 ms MV Area (PHT) 3.0 cm2 4.0-5.0 MV Diastolic Function MV E Peak Velocity 130 cm/s MV A Peak Velocity 116 cm/s
[2023-03-04 03:57] LABS: Glucose Point of Care 164 mg/dl (65-105)
[2023-03-04 06:30] LABS: Basophils Percent Auto 0.6 % (0.2-1.2); Eosinophils Absolute Auto 0.5 K/mm3 (0-0.3); Eosinophils Percent Auto 6.6 % (0-4.4); Hematocrit 45.6 % (42.0-52.0); Immature Granulocyte Absolute 0.02 K/mm3 (0.00-0.031); Immature Granulocyte Percent A 0.3 % (0-0.5); Lymphocytes Absolute Auto 1.92 K/mm3 (0.9-3.2); Lymphocytes Percent Auto 26.4 % (18.3-44.2); Mean Corpuscular HGB Conc 30.7 g/dl (32-36); Mean Corpuscular Hemoglobin 27.1 pg (26-34); Mean Corpuscular Volume 88.4 fl (80-100); Mean Platelet Volume 11.5 fl (7.4-10.4); Monocytes Absolute Auto 0.9 K/mm3 (0.1-0.6); Monocytes Percent Auto 12.5 % (2.6-8.5); Neutrophils Absolute Auto 3.9 K/mm3 (1.3-6.7); Neutrophils Percent Auto 53.6 % (45.5-73.1); Platelet Count Result 245 k/mm3 (150-375); Red Blood Count 5.16 M/mm3 (4.6-6.20); Red Cell Distribution Width 15.3 % (11.5-14.5); White Blood Count 7.3 K/mm3 (4.5-10.0)
[2023-03-04 06:39] LABS: Alanine Aminotransferase 41 U/L (6-50); Albumin Level 3.3 g/dL (3.5-5.1); Alkaline Phosphatase 101 U/L (38-126); Anion Gap 8 mmol/L (8-16); Aspartate Amino Transferase 34 U/L (17-59); Blood Urea Nitrogen 26 mg/dL (9-20); Calcium 8.6 mg/dL (8.4-10.2); Carbon Dioxide 26 mmol/L (22-30); Chloride 106 mmol/L (98-107); Estimated CRCL calculation 55 ml/min; Estimated Glomerular Filt Rate > 60; Glucose 113 mg/dL (65-110); Potassium 3.5 mmol/L (3.4-5.0); Sodium 140 mmol/L (137-145)
[2023-03-04 06:47] LABS: NT Pro B Type Natriuretic Pept 8260 pg/mL (19.9-100)
[2023-03-04 08:22] LABS: Glucose Point of Care 118 mg/dl (65-105)
--- NOTE | 2023-03-04 08:42 | PM.CNCAR ---
Assessment and Plan Assessment and plan (1) Acute on chronic systolic (congestive) heart failure: Code(s): I50.23 - Acute on chronic systolic (congestive) heart failure Status: Acute Assessment and Plan: Patient was recently admitted at [facility]. Sounds like he had a CHF exacerbation there and was still short of breath upon discharge. Will institute IV furosemide 40 mg IV q.12 hours. Will follow intake and output and daily weights. His renal function is slightly elevated but he has congestion on his lungs as well as edema. He needs further diuresis. Will supplement potassium 40 mEq p.o. x1. 2D echocardiogram Doppler be ordered and reviewed. Low-sodium diet. Continue Entresto at current dose of 49/51 mg p.o. b.i.d.. Continue Jardiance. Will increase metoprolol succinate up to 50 mg p.o. daily. (2) Elevated troponin: Code(s): R79.89 - Other specified abnormal findings of blood chemistry Status: Acute Assessment and Plan: No significant rise or fall. Likely secondary to heart failure and not from ACS (3) Coronary artery disease: Code(s): I25.10 - Atherosclerotic heart disease of [place] coronary artery without angina pectoris Status: Acute Assessment and Plan: History of CABG. Continue aspirin, clopidogrel, cholesterol regimen (4) Chest pain: Qualifiers: Chest pain type: other chest pain Qualified Code(s): R07.89 - Other chest pain Code(s): R07.9 - Chest pain, unspecified Status: Acute Assessment and Plan: Not related ACS (5) Hypertension associated with diabetes: Code(s): E11.59 - Type 2 diabetes mellitus with other circulatory complications; I15.2 - Hypertension secondary to endocrine disorders Status: Acute Assessment and Plan: Continue current meds but I am going to increase his metoprolol (6) Hyperlipidemia associated with type 2 diabetes mellitus: Code(s): E11.69 - Type 2 diabetes mellitus with other specified complication; E78.5 - Hyperlipidemia, unspecified Status: Acute (7) Ischemic cardiomyopathy: Code(s): I25.5 - Ischemic cardiomyopathy Status: Acute History of Present Illness History of Present Illness Consult date/time: 03/04/23 08:42 Requesting physician: Roz Acosta DO Consult reason: congestive heart failure Reason For Visit: Heart failure exacerbation Narrative: Date of service 03/04/2023 Reason for consultation: CHF Requesting provider: Dr. Acosta History: Patient is a 63-year-old male who has a history of coronary disease, ischemic cardiomyopathy, stroke, diabetes, hypertension who presented the hospital with worsening shortness of breath. He was recently at [facility] for similar presentation. Patient states he a he simply has not felt well since his bypass in 2019. He follows with Dr. Trotter. He states that he was discharged from [facility] sooner than he thinks he should have been. He was brought here and readmitted for worsening PND, edema, chest pain, palpitations, shortness of breath. States that shortness breath occurs even at rest. Chest pain is random and last for couple of minutes. Is been present for years. He does have worsening swelling and describes waking up at night short of breath. He also has some random episodes of palpitations which relatively short-lived. He states that his EF is 20-25% according to Dr. Trotter. This record is not available for my review at this point. He was admitted and started on diuresis. Cardiology consultation has been requested. He feels a little bit better today and is slightly less short of breath. He states that he tries to be compliant with diet and avoid sodium. He states that he takes his medication Review of Systems Review of Systems: All systems reviewed & are unremarkable except as noted in HPI and below Constitutional: Constitutional: Denies body ache(s) Eyes: Eyes: Denies blurry vi
[2023-03-04] MEDS: FUROSEMIDE INJ 40 MG/4 ML VIAL IV PUSH ×2 (09:16→17:44)
[2023-03-04] MEDS: CLOPIDOGREL BISULFATE 75 MG TABLET PO (09:16)
[2023-03-04] MEDS: METOPROLOL SUCCINATE EXT REL 50 MG TABCR PO (09:16)
[2023-03-04] MEDS: SACUBITRIL/VALSARTAN 49-51 MG TABLET 1 TABLET PO ×2 (09:16→20:50)
[2023-03-04] MEDS: ISOSORBIDE MONONITRATE 30 MG TAB.ER.24H PO (09:17)
[2023-03-04] MEDS: POTASSIUM CHLORIDE 20 MEQ ER TABLET 40 MEQ PO (09:19)
--- NOTE | 2023-03-04 11:50 | PM.IMPN ---
Progress Note: A&P Assessment and Plan (1) CHF exacerbation: Qualifiers: Heart failure type: unspecified Qualified Code(s): I50.9 - Heart failure, unspecified Code(s): I50.9 - Heart failure, unspecified Status: Acute Assessment and Plan: Check echo, Lasix 40 mg IV q.12 Strict I&Os, daily weights Continue home meds Consult cardiology, they recommended continuing Entresto at current doses, continuing Jardiance, increasing metoprolol to 50 mg daily improving (2) Coronary artery disease: Code(s): I25.10 - Atherosclerotic heart disease of [place] coronary artery without angina pectoris Status: Acute Assessment and Plan: Continue home medications (3) Acute kidney injury: Code(s): N17.9 - Acute kidney failure, unspecified Status: Acute Assessment and Plan: Monitor creatinine, likely secondary to congestion, improvement with Lasix resolved (4) Elevated troponin: Code(s): R79.89 - Other specified abnormal findings of blood chemistry Status: Acute Assessment and Plan: Trend troponin, monitor telemetry (5) Diabetes mellitus with hyperglycemia: Qualifiers: Diabetes mellitus skilled nursing insulin use: with watermaster use Diabetes mellitus type: type 2 Qualified Code(s): E11.65 - Type 2 diabetes mellitus with hyperglycemia; Z79.4 - termination clerk (current) use of insulin Code(s): E11.65 - Type 2 diabetes mellitus with hyperglycemia Status: Acute Assessment and Plan: Accu-Cheks, sliding scale insulin, A1c 10.6 Blood glucose reviewed 03/04 consistently under 200 here, consider starting oral antidiabetic medication due to elevated A1c of sugars creep up, monitor Plan DVT prophylaxis with SCDs GI prophylaxis not indicated Code status full code Subjective Date/time seen: 03/04/23 11:50 Interval history: 63-year-old male with history of heart disease, CVA, diabetes, hypertension, seizure disorder is presenting with shortness of breath and is currently being treated for suspected heart failure exacerbation. No overnight events noted. No chest pain or shortness of breath. No nausea, vomiting or diarrhea. No fevers or chills. Review of Systems Review of Systems: 12 point review of systems was assessed and was negative except as noted in the HPI Exam Narrative: General: No acute distress, alert and oriented per baseline HEENT: Atraumatic, normocephalic, mucous membranes moist CV: Regular rate and rhythm, S1, S2 Lungs: Clear to auscultation bilaterally, no rales or crackles noted, no wheezes, good air entry Abdomen: Soft, nontender, nondistended Extremities: Normal to inspection Skin: No rashes noted, no lesions or wounds seen Psych: Euthymic, normal affect Objective Data Vital Signs Vital Signs: Vital Signs - 24 hr 03/03/23 11:59 03/03/23 12:00 03/03/23 13:40 Temperature Pulse Rate 80 60 77 Respiratory Rate 20 20 Blood Pressure 157/100 H 146/89 H Pulse Oximetry 100 100 Oxygen Delivery Oxygen Flow Rate 03/03/23 12:45 03/03/23 14:00 03/03/23 16:00 Temperature 97.7 F Pulse Rate 75 79 88 Respiratory Rate 20 18 Blood Pressure 157/94 H Pulse Oximetry 100 96 Oxygen Delivery Oxygen Flow Rate 03/03/23 22:00 03/03/23 23:24 03/03/23 20:00 Temperature 97.7 F Pulse Rate 81 78 Respiratory Rate 21 H Blood Pressure 164/97 H Pulse Oximetry 100 94 Oxygen Delivery Nasal Cannula Oxygen Flow Rate 2 03/04/23 00:00 03/04/23 04:00 03/04/23 06:00 Temperature 97.9 F Pulse Rate 69 63 73 Respiratory Rate 21 H Blood Pressure 151/89 H Pulse Oximetry 100 Oxygen Delivery Oxygen Flow Rate 03/04/23 09:02 03/04/23 09:16 03/04/23 08:00 Temperature Pulse Rate 85 77 Respiratory Rate Blood Pressure Pulse Oximetry 100 Oxygen Delivery Nasal Cannula Oxygen Flow Rate 2 Intake/Output Intake/Out
[2023-03-04 12:06] LABS: Glucose Point of Care 278 mg/dl (65-105)
[2023-03-04] MEDS: INSULIN ASPART (*BKC) 100 UNITS/ML SUB-Q ×2 (12:25→17:42)
[2023-03-04 17:30] LABS: Glucose Point of Care 221 mg/dl (65-105)
[2023-03-04 19:44] LABS: Glucose Point of Care 177 mg/dl (65-105)
[2023-03-04] MEDS: traZODone HCL 50 MG TABLET 100 MG PO (20:50)
--- NOTE | 2023-03-04 21:04 | PC.NURSE ---
Pt is very confrontational and argumentative. I tried handing him his med cup he got mad cause he says he cant hold it. He held it yesterday fine. I offered to put them in his mouth for him that also made him mad so yanked his med cup out of my hand. We have still been unable to confirm home medications after several attempts. He wants his gabapentin I informed him I already placed a call that the dr is going to review his chart im waiting to hear back. That also made him mad cause he says we are allowing him to suffer and arent helping him.
--- NOTE | 2023-03-04 21:28 | PC.NURSE ---
Dalila called back about the gabapentin. She is not gonna restart it out of concern for his heart failure.
[2023-03-05] VITALS (12 sets, daily range): BP systolic 116–158; BP diastolic 62–97; PULSE 71–85; RESP 14–18; TEMP 36.3–37.4; O2SAT 96–100
[2023-03-05 05:50] LABS: Basophils Absolute Auto 0.1 K/mm3 (0.0-0.1); Basophils Percent Auto 0.8 % (0.2-1.2); Eosinophils Absolute Auto 0.5 K/mm3 (0-0.3); Eosinophils Percent Auto 6.5 % (0-4.4); Hematocrit 47.1 % (42.0-52.0); Hemoglobin 14.9 g/dL (14.0-18.0); Immature Granulocyte Absolute 0.02 K/mm3 (0.00-0.031); Immature Granulocyte Percent A 0.3 % (0-0.5); Lymphocytes Percent Auto 26.7 % (18.3-44.2); Mean Corpuscular HGB Conc 31.6 g/dl (32-36); Mean Corpuscular Hemoglobin 27.2 pg (26-34); Mean Corpuscular Volume 86.1 fl (80-100); Mean Platelet Volume 11.1 fl (7.4-10.4); Monocytes Absolute Auto 0.9 K/mm3 (0.1-0.6); Monocytes Percent Auto 12.1 % (2.6-8.5); Neutrophils Absolute Auto 3.8 K/mm3 (1.3-6.7); Neutrophils Percent Auto 53.6 % (45.5-73.1); Platelet Count Result 286 k/mm3 (150-375); Red Blood Count 5.47 M/mm3 (4.6-6.20); Red Cell Distribution Width 14.7 % (11.5-14.5); White Blood Count 7.1 K/mm3 (4.5-10.0)
[2023-03-05 06:06] LABS: Alanine Aminotransferase 31 U/L (6-50); Albumin Level 3.7 g/dL (3.5-5.1); Alkaline Phosphatase 109 U/L (38-126); Anion Gap 10 mmol/L (8-16); Aspartate Amino Transferase 27 U/L (17-59); Bilirubin,Total 1.9 mg/dL (0.2-1.3); Blood Urea Nitrogen 27 mg/dL (9-20); Calcium 9.1 mg/dL (8.4-10.2); Carbon Dioxide 27 mmol/L (22-30); Chloride 102 mmol/L (98-107); Estimated CRCL calculation 48 ml/min; Estimated Glomerular Filt Rate > 60; Glucose 165 mg/dL (65-110); Sodium 139 mmol/L (137-145)
[2023-03-05 08:46] LABS: Glucose Point of Care 180 mg/dl (65-105)
--- NOTE | 2023-03-05 09:47 | PM.IMPN ---
Progress Note: A&P Assessment and Plan (1) CHF exacerbation: Qualifiers: Heart failure type: unspecified Qualified Code(s): I50.9 - Heart failure, unspecified Code(s): I50.9 - Heart failure, unspecified Status: Acute Assessment and Plan: Check echo, Lasix 40 mg IV q.12 Strict I&Os, daily weights Continue home meds 03/04: Consult cardiology, they recommended continuing Entresto at current doses, continuing Jardiance, increasing metoprolol to 50 mg daily improving (2) Coronary artery disease: Code(s): I25.10 - Atherosclerotic heart disease of [place] coronary artery without angina pectoris Status: Acute Assessment and Plan: Continue home medications (3) Acute kidney injury: Code(s): N17.9 - Acute kidney failure, unspecified Status: Acute Assessment and Plan: Monitor creatinine, likely secondary to congestion, improvement with Lasix Slightly worsened today, anticipate switching to oral diuresis and d/c home tomorrow (4) Elevated troponin: Code(s): R79.89 - Other specified abnormal findings of blood chemistry Status: Acute Assessment and Plan: Trend troponin, monitor telemetry (5) Diabetes mellitus with hyperglycemia: Qualifiers: Diabetes mellitus intermodal customer service insulin use: with intermodal customer service use Diabetes mellitus type: type 2 Qualified Code(s): E11.65 - Type 2 diabetes mellitus with hyperglycemia; Z79.4 - terminal manager (current) use of insulin Code(s): E11.65 - Type 2 diabetes mellitus with hyperglycemia Status: Acute Assessment and Plan: Accu-Cheks, sliding scale insulin, A1c 10.6 Blood glucose reviewed 03/04 consistently under 200 here, consider starting oral antidiabetic medication due to elevated A1c of sugars creep up, monitor Plan DVT prophylaxis with SCDs GI prophylaxis not indicated Code status full code Subjective Date/time seen: 03/05/23 09:47 Interval history: 63-year-old male with history of heart disease, CVA, diabetes, hypertension, seizure disorder is presenting with shortness of breath and is currently being treated for suspected heart failure exacerbation. No overnight events noted. No chest pain or shortness of breath. No nausea, vomiting or diarrhea. No fevers or chills. States he feels better, weaned to room air. Review of Systems Review of Systems: 12 point review of systems was assessed and was negative except as noted in the HPI Exam Narrative: General: No acute distress, alert and oriented per baseline HEENT: Atraumatic, normocephalic, mucous membranes moist CV: Regular rate and rhythm, S1, S2 Lungs: Diminished at bases, scattered fine crackles bibasilar, no wheeze Abdomen: Soft, nontender, nondistended Extremities: Normal to inspection, 1+ pitting edema B/L LE Skin: No rashes noted, no lesions or wounds seen Psych: Euthymic, normal affect Objective Data Vital Signs Vital Signs: Vital Signs - 24 hr 03/04/23 12:00 03/04/23 13:57 03/04/23 16:00 Temperature 99.4 F Pulse Rate 82 75 83 Respiratory Rate 18 Blood Pressure 155/82 H Pulse Oximetry 98 Oxygen Delivery Oxygen Flow Rate 03/04/23 19:18 03/04/23 20:00 03/04/23 20:00 Temperature 98.7 F Pulse Rate 84 78 Respiratory Rate 18 Blood Pressure 123/71 Pulse Oximetry 93 100 Oxygen Delivery Nasal Cannula Oxygen Flow Rate 2 03/05/23 00:00 03/05/23 04:00 03/05/23 06:00 Temperature 99.0 F Pulse Rate 71 78 84 Respiratory Rate 18 Blood Pressure 116/62 Pulse Oximetry 96 Oxygen Delivery Oxygen Flow Rate 03/05/23 08:00 03/05/23 09:27 Temperature Pulse Rate 83 Respiratory Rate Blood Pressure Pulse Oximetry 96 Oxygen Delivery Nasal Cannula Oxygen Flow Rate 2 Intake/Output Intake/Output: Intake & Output 03/02/23 03/03/23 03/04/23 03/05/23 23:59 23:59 23:59 23:59 Intake Total 0 1990 800 Output Total
[2023-03-05] MEDS: CLOPIDOGREL BISULFATE 75 MG TABLET PO (09:48)
[2023-03-05] MEDS: ISOSORBIDE MONONITRATE 30 MG TAB.ER.24H PO (09:48)
[2023-03-05] MEDS: METOPROLOL SUCCINATE EXT REL 50 MG TABCR PO (09:48)
[2023-03-05] MEDS: FUROSEMIDE INJ 40 MG/4 ML VIAL IV PUSH ×2 (09:48→17:15)
[2023-03-05] MEDS: SACUBITRIL/VALSARTAN 49-51 MG TABLET 1 TABLET PO ×2 (09:48→21:36)
[2023-03-05 11:55] LABS: Glucose Point of Care 345 mg/dl (65-105)
[2023-03-05] MEDS: INSULIN ASPART (*BKC) 100 UNITS/ML SUB-Q ×2 (12:05→17:15)
--- NOTE | 2023-03-05 15:16 | PM.PNCARD ---
Progress Note: A&P Assessment and Plan (1) Acute on chronic systolic (congestive) heart failure: Code(s): I50.23 - Acute on chronic systolic (congestive) heart failure Status: Acute Assessment and Plan: Patient was recently admitted at [facility]. Sounds like he had a CHF exacerbation there and was still short of breath upon discharge. Continue furosemide 40mg IV b.i.d Strict I&O Low Na diet JULIO CESAR hose CHF counseling Continue jardiance, entresto, metoprolol Daily BMP (2) Elevated troponin: Code(s): R79.89 - Other specified abnormal findings of blood chemistry Status: Acute Assessment and Plan: No significant rise or fall. Likely secondary to heart failure and not from ACS (3) Coronary artery disease: Code(s): I25.10 - Atherosclerotic heart disease of [place] coronary artery without angina pectoris Status: Acute Assessment and Plan: History of CABG. Continue aspirin, clopidogrel, cholesterol regimen (4) Chest pain: Qualifiers: Chest pain type: other chest pain Qualified Code(s): R07.89 - Other chest pain Code(s): R07.9 - Chest pain, unspecified Status: Acute Assessment and Plan: Not related ACS (5) Hypertension associated with diabetes: Code(s): E11.59 - Type 2 diabetes mellitus with other circulatory complications; I15.2 - Hypertension secondary to endocrine disorders Status: Acute Assessment and Plan: Continue current medical regimen (6) Hyperlipidemia associated with type 2 diabetes mellitus: Code(s): E11.69 - Type 2 diabetes mellitus with other specified complication; E78.5 - Hyperlipidemia, unspecified Status: Acute (7) Ischemic cardiomyopathy: Code(s): I25.5 - Ischemic cardiomyopathy Status: Acute Subjective Date/time seen: 03/05/23 15:16 Interval history: Cardiology follow up for CHF Feeling much better today. No shortness of breath. Still has some swelling. Review of Systems Review of Systems: All systems reviewed & are unremarkable except as noted in HPI and below Constitutional: Constitutional: Denies body ache(s) and Denies excessive sweating Eyes: Eyes: Denies blurry vision ENT: Reports Normal hearing present Cardiovascular: Cardiovascular: Reports chest pain, Reports pedal edema and Reports dyspnea Respiratory: Respiratory: Reports dyspnea Gastrointestinal: Gastrointestinal: Denies abdominal pain Genitourinary: Genitourinary: Denies hematuria Musculoskeletal: Musculoskeletal: Denies back pain Integumentary/Breasts: Skin/Breast: Denies dry skin Neurologic: Reports Normal hearing present and Denies Abnormal speech present Psychiatric: Psychiatric: Denies anxiety Endocrine: Endocrine: Denies excessive sweating Hematologic/Lymphatic: Hematologic/Lymphatic: Denies easy bleeding Allergic/Immunologic: Allergic/Immunologic: Denies GI upset with certain foods Exam Narrative: Awake alert oriented appears to be in no acute distress. Appears stated age Const: General: comfortable and no acute distress HENMT: Face/Nose/Sinus: Normal nares present Mouth: Yes moist mucous membranes Eyes: Sclera: sclerae normal Neck: Neck: supple and no JVD Carotids: no bruits Chest: Other: No reproducible chest wall pain to palpation Resp: Effort & Inspection: normal respiratory effort Auscultation: clear to auscultation bilaterally Cardio: Rate: regular rate Rhythm: regular rhythm Heart sounds: no murmurs GI: Inspection: non-distended Skin: General skin exam: normal color and no rashes or lesions noted Neuro: Cranial nerves: Yes Normal hearing present Speech: normal speech and No Abnormal speech present Sensory Exam: normal sensation Extrem: General: edema Other: 1+ bilateral extremity edema Psych: Mental Status: mental status grossly normal Objective Data Vital Signs Vital Signs: Vital Signs - 24 hr 11
--- NOTE | 2023-03-05 15:38 | PC.NURSE ---
RN had medication list sent over from [facility] and reconciled medication list.
[2023-03-05 17:02] LABS: Glucose Point of Care 297 mg/dl (65-105)
[2023-03-05 20:07] LABS: Glucose Point of Care 266 mg/dl (65-105)
--- NOTE | 2023-03-05 20:29 | PC.NURSE ---
pts gabapentin wasnt addressed by day provider. I told Dr. Das that he needs it.
[2023-03-05] MEDS: traZODone HCL 50 MG TABLET 100 MG PO (21:36)
[2023-03-05] MEDS: GABAPENTIN 300 MG CAPSULE PO (21:36)
[2023-03-06] VITALS: PULSE 76
[2023-03-06 04:00] VITALS: PULSE 73
[2023-03-06 05:40] LABS: Basophils Absolute Auto 0.1 K/mm3 (0.0-0.1); Basophils Percent Auto 0.7 % (0.2-1.2); Eosinophils Absolute Auto 0.3 K/mm3 (0-0.3); Eosinophils Percent Auto 4.5 % (0-4.4); Hematocrit 49.6 % (42.0-52.0); Hemoglobin 15.4 g/dL (14.0-18.0); Immature Granulocyte Absolute 0.02 K/mm3 (0.00-0.031); Immature Granulocyte Percent A 0.3 % (0-0.5); Lymphocytes Absolute Auto 1.91 K/mm3 (0.9-3.2); Lymphocytes Percent Auto 26.9 % (18.3-44.2); Mean Corpuscular Hemoglobin 27.1 pg (26-34); Mean Corpuscular Volume 87.3 fl (80-100); Mean Platelet Volume 11.2 fl (7.4-10.4); Monocytes Absolute Auto 0.9 K/mm3 (0.1-0.6); Monocytes Percent Auto 12.5 % (2.6-8.5); Neutrophils Absolute Auto 3.9 K/mm3 (1.3-6.7); Neutrophils Percent Auto 55.1 % (45.5-73.1); Platelet Count Result 304 k/mm3 (150-375); Red Blood Count 5.68 M/mm3 (4.6-6.20); Red Cell Distribution Width 15.3 % (11.5-14.5); White Blood Count 7.1 K/mm3 (4.5-10.0)
[2023-03-06 05:52] LABS: Alanine Aminotransferase 30 U/L (6-50); Albumin Level 3.9 g/dL (3.5-5.1); Alkaline Phosphatase 96 U/L (38-126); Anion Gap 9 mmol/L (8-16); Aspartate Amino Transferase 25 U/L (17-59); Bilirubin,Total 1.5 mg/dL (0.2-1.3); Blood Urea Nitrogen 26 mg/dL (9-20); Carbon Dioxide 29 mmol/L (22-30); Chloride 100 mmol/L (98-107); Estimated CRCL calculation 51 ml/min; Estimated Glomerular Filt Rate > 60; Glucose 196 mg/dL (65-110); Sodium 138 mmol/L (137-145)
[2023-03-06 06:00] VITALS: BP 143/90; PULSE 79; RESP 14; TEMP 36.1; O2SAT 100
[2023-03-06 07:40] LABS: Glucose Point of Care 183 mg/dl (65-105)
[2023-03-06 08:00] VITALS: PULSE 82
[2023-03-06] MEDS: CLOPIDOGREL BISULFATE 75 MG TABLET PO (09:17)
[2023-03-06] MEDS: GABAPENTIN 100 MG CAPSULE PO (09:17)
[2023-03-06] MEDS: FUROSEMIDE INJ 40 MG/4 ML VIAL IV PUSH (09:17)
[2023-03-06] MEDS: SACUBITRIL/VALSARTAN 49-51 MG TABLET 1 TABLET PO (09:17)
[2023-03-06] MEDS: ISOSORBIDE MONONITRATE 30 MG TAB.ER.24H PO (09:17)
[2023-03-06 09:18] VITALS: PULSE 87
[2023-03-06] MEDS: METOPROLOL SUCCINATE EXT REL 50 MG TABCR PO (09:18)
--- NOTE | 2023-03-06 09:52 | PM.PNCARD ---
Progress Note: A&P Assessment and Plan (1) Acute on chronic systolic (congestive) heart failure: Code(s): I50.23 - Acute on chronic systolic (congestive) heart failure Status: Acute Assessment and Plan: Patient was recently admitted at [facility]. Sounds like he had a CHF exacerbation there and was still short of breath upon discharge. Okay for discharge from my perspective. Will discontinue his IV furosemide and transition back to his oral furosemide of 80 mg p.o. b.i.d.. Strict I&O Low Na diet JULIO CESAR guzmán CHF counseling Continue jardiance, entresto, metoprolol (2) Elevated troponin: Code(s): R79.89 - Other specified abnormal findings of blood chemistry Status: Acute Assessment and Plan: No significant rise or fall. Likely secondary to heart failure and not from ACS (3) Coronary artery disease: Code(s): I25.10 - Atherosclerotic heart disease of [place] coronary artery without angina pectoris Status: Acute Assessment and Plan: History of CABG. Continue aspirin, clopidogrel, cholesterol regimen (4) Chest pain: Qualifiers: Chest pain type: other chest pain Qualified Code(s): R07.89 - Other chest pain Code(s): R07.9 - Chest pain, unspecified Status: Acute Assessment and Plan: Not related ACS (5) Hypertension associated with diabetes: Code(s): E11.59 - Type 2 diabetes mellitus with other circulatory complications; I15.2 - Hypertension secondary to endocrine disorders Status: Acute Assessment and Plan: Continue current medical regimen (6) Hyperlipidemia associated with type 2 diabetes mellitus: Code(s): E11.69 - Type 2 diabetes mellitus with other specified complication; E78.5 - Hyperlipidemia, unspecified Status: Acute (7) Ischemic cardiomyopathy: Code(s): I25.5 - Ischemic cardiomyopathy Status: Acute Assessment and Plan: ?2. Normal left ventricular size, overall preserved systolic function, inferior hypokinesia noted. ? 3. Mild left atrial enlarged. ? 4. Trivial mitral regurgitation. Follow up with Dr. Trotter Subjective Date/time seen: 03/06/23 09:52 Interval history: Cardiology follow up for CHF Date of service 03/06/2023: Wants to go home. Still has some swelling but no chest pain or shortness of breath. Review of Systems Review of Systems: All systems reviewed & are unremarkable except as noted in HPI and below Constitutional: Constitutional: Denies body ache(s) and Denies excessive sweating Eyes: Eyes: Denies blurry vision ENT: Reports Normal hearing present Cardiovascular: Cardiovascular: Reports chest pain, Reports pedal edema and Reports dyspnea Respiratory: Respiratory: Reports dyspnea Gastrointestinal: Gastrointestinal: Denies abdominal pain Genitourinary: Genitourinary: Denies hematuria Musculoskeletal: Musculoskeletal: Denies back pain Integumentary/Breasts: Skin/Breast: Denies dry skin Neurologic: Reports Normal hearing present and Denies Abnormal speech present Psychiatric: Psychiatric: Denies anxiety Endocrine: Endocrine: Denies excessive sweating Hematologic/Lymphatic: Hematologic/Lymphatic: Denies easy bleeding Allergic/Immunologic: Allergic/Immunologic: Denies GI upset with certain foods Exam Narrative: Awake alert oriented appears to be in no acute distress. Appears stated age Const: General: comfortable and no acute distress HENMT: Face/Nose/Sinus: Normal nares present Mouth: Yes moist mucous membranes Eyes: Sclera: sclerae normal Neck: Neck: supple and no JVD Carotids: no bruits Chest: Other: No reproducible chest wall pain to palpation Resp: Effort & Inspection: normal respiratory effort Auscultation: clear to auscultation bilaterally and crackles Other: Mild crackles left base Cardio: Rate: regular rate Rhythm: regular rhythm Heart sounds: no murmurs GI: Inspection: non-dis
--- NOTE | 2023-03-06 11:05 | PM.DS ---
DS: Admitting Diagnosis Discharge Date 03/06/23 Admitting Diagnosis Short of breath DS: Discharge Diagnosis Discharge Diagnosis (1) CHF exacerbation: Qualifiers: Heart failure type: combined systolic and diastolic Qualified Code(s): I50.43 - Acute on chronic combined systolic (congestive) and diastolic (congestive) heart failure Code(s): I50.9 - Heart failure, unspecified Status: Acute (2) Acute kidney injury: Code(s): N17.9 - Acute kidney failure, unspecified Status: Acute (3) Chest pain: Qualifiers: Chest pain type: other chest pain Qualified Code(s): R07.89 - Other chest pain Code(s): R07.9 - Chest pain, unspecified Status: Acute (4) Elevated troponin: Code(s): R79.89 - Other specified abnormal findings of blood chemistry Status: Acute (5) Coronary artery disease: Code(s): I25.10 - Atherosclerotic heart disease of [place] coronary artery without angina pectoris Status: Acute (6) Diabetes mellitus with hyperglycemia: Qualifiers: Diabetes mellitus type: type 2 Diabetes mellitus intermediate accountant insulin use: with penitentiary use Qualified Code(s): E11.65 - Type 2 diabetes mellitus with hyperglycemia; Z79.4 - laborer marine terminal (current) use of insulin Code(s): E11.65 - Type 2 diabetes mellitus with hyperglycemia Status: Acute (7) Hypertension associated with diabetes: Code(s): E11.59 - Type 2 diabetes mellitus with other circulatory complications; I15.2 - Hypertension secondary to endocrine disorders Status: Acute (8) Hyperlipidemia associated with type 2 diabetes mellitus: Code(s): E11.69 - Type 2 diabetes mellitus with other specified complication; E78.5 - Hyperlipidemia, unspecified Status: Acute (9) Ischemic cardiomyopathy: Code(s): I25.5 - Ischemic cardiomyopathy Status: Acute DS: Summary Hospital Course Reason for hospitalization: 63-year-old male with history of CAD, CVA, diabetes, hypertension, seizure disorder is presenting with shortness of breath and found to have CHF exacerbation. Please see H&P for details. Hospital Course: Patient presents to the emergency room complaining of shortness of breath. He was recently at another hospital for CHF and was discharged a few days prior to this admission. D-dimer was positive. Chest CTA showed no pulmonary emboli but did show mild pulmonary edema and mild mediastinal lymphadenopathy likely reactive. He was started on IV diuretics. He has a history of chronic systolic CHF. Echocardiogram here shows LV systolic function is mildly reduced at about 40%. He has mild mitral regurgitation. He had grade 1 diastolic dysfunction. His creatinine was elevated 1.6 and [place] BNP was [address]9916. Had excellent diuresis with negative fluid balance. Glucose was poorly controlled. His A1c was 10.6. Troponin was elevated at 0.06 and there it remained flat. EKG on admission showed normal sinus rhythm with left axis deviation and incomplete left bundle branch block. He did have poor R-wave progression and borderline ST-T wave changes. Cr back down to 1.3. Apnea link normal but done on 2L. He feels much better today. Slept well. Denies chest pain, shortness of breath or dyspnea on exertion. He feels ready for discharge. Patient overall did well was able be discharged home on 03/06/2023. It should be mentioned that there was issues trying to obtain an accurate medication list so some 'new medications' may be chronic. Status at Discharge Cognitive/behavioral status at discharge: Stable Time Spent with Patient Time attestation: Total time spent providing and/or coordinating discharge services: 35 minutes Time spent: Greater than 30 minutes Exam Narrative: AF 97.0 143/90 87 14 100% ra Gen - NARD Chest - CTA bilaterally, nml RR CV - RRR S1/S2. Tele showing occasional PVCs Abd - Soft, NT/ND, Positive BS Ext - postive pedal edema w
== END 2023-03-06 13:35 | disposition home or self-care (01) | DRG 194 ==
LOC: ANHED 03-03 06:21 → ANH3MED 03-03 13:41
PROVIDERS: Student in an Organized Health Care Education/Training Program; Admitting Provider Internal Medicine; Emergency Provider Student in an Organized Health Care Education/Training Program; PCP Family Medicine; Visit Provider Internal Medicine
DX: I11.0 Hypertensive heart disease with heart failure (principal); I50.43 Acute on chronic combined systolic (congestive) and diastolic (congestive) heart failure; N17.9 Acute kidney failure, unspecified; I69.354 Hemiplegia and hemiparesis following cerebral infarction affecting left non-dominant side; E11.65 Type 2 diabetes mellitus with hyperglycemia; E11.42 Type 2 diabetes mellitus with diabetic polyneuropathy; E78.5 Hyperlipidemia, unspecified; I25.5 Ischemic cardiomyopathy; G40.909 Epilepsy, unspecified, not intractable, without status epilepticus; I25.10 Atherosclerotic heart disease of native coronary artery without angina pectoris; I34.0 Nonrheumatic mitral (valve) insufficiency; Z95.1 Presence of aortocoronary bypass graft; Z95.5 Presence of coronary angioplasty implant and graft; Z79.4 Long term (current) use of insulin; Z20.822 Contact with and (suspected) exposure to COVID-19; Z79.84 Long term (current) use of oral hypoglycemic drugs
CPT/HCPCS: 36415; 71046; 71275; 80053; 82948; 83036; 83690; 83735; 83880; 84484; 85025; 85380; 85610; 85730; 87636; 93005; 93306; 94762; 96372; 96374; 96376; 99285; A9270; G0378; G0379; J1815; J1940; Q9967